=== PATIENT | female | born 1940 | race Caucasian/White ===

== ENCOUNTER 2019-07-05 16:26 | Emergency (ER) | payer MEDICARE ==
[~2019-07-05] VITALS: Ht 154.9 cm; Wt 90.0 kg
[2019-07-05] MEDS ORDERED: HYDR-4383 PO (17:23)
[2019-07-05 17:31] VITALS: BP 165/69
== END 2019-07-05 17:33 | disposition home or self-care (01) ==
LOC: ER 16:27
DX: S42.254A Nondisplaced fracture of greater tuberosity of right humerus, initial encounter for closed fracture (principal); Z79.899 Other long term (current) drug therapy; W10.8XXA Fall (on) (from) other stairs and steps, initial encounter; Y93.01 Activity, walking, marching and hiking; Y92.89 Other specified places as the place of occurrence of the external cause; Y99.8 Other external cause status
CPT/HCPCS: 73030; 99284

== ENCOUNTER 2019-07-28 09:45 | Outpatient (CLI) | payer MEDICARE ==
[~2019-07-28 09:45] MED LIST: HYDR-4383 PO
== END 2019-07-28 10:45 | disposition home or self-care (01) ==
LOC: ORTHO 09:45
PROVIDERS: ATTEND Nurse Practitioner
DX: S42.254A Nondisplaced fracture of greater tuberosity of right humerus, initial encounter for closed fracture (principal); J44.9 Chronic obstructive pulmonary disease, unspecified; Z79.899 Other long term (current) drug therapy; W10.8XXA Fall (on) (from) other stairs and steps, initial encounter; Y93.01 Activity, walking, marching and hiking; Y92.89 Other specified places as the place of occurrence of the external cause; Y99.8 Other external cause status
CPT/HCPCS: 73030; G0463

== ENCOUNTER 2019-08-26 09:32 | Outpatient (CLI) | payer MEDICARE ==
[2019-08-26 09:39] VITALS: BP 179/75
== END 2019-08-26 10:18 | disposition home or self-care (01) ==
LOC: ORTHO 09:32
PROVIDERS: ATTEND Nurse Practitioner
DX: S42.201D Unspecified fracture of upper end of right humerus, subsequent encounter for fracture with routine healing (principal); X58.XXXD Exposure to other specified factors, subsequent encounter
CPT/HCPCS: 73030; G0463